=== PATIENT | female | born 1950 | race Caucasian/White ===

== ENCOUNTER → 2016-12-13 | Outpatient (REF) | payer MEDICARE ==
[2016-12-13 15:54] LABS: IMMUNOGLOBULIN G 1540 MG/DL (681-1648)
[2016-12-13 16:23] LABS: IMMUNOGLOBULIN M 15.1 MG/DL (40-230)
[2016-12-15 00:07] LABS: FREE KAPPA LIGHT CHAINS SERUM 99.59 mg/L (3.30-19.40); FREE LAMBDA LIGHT CHAINS SERUM 38.68 mg/L (5.71-26.30); KAPPA/LAMBDA RATIO SERUM 2.57 (0.26-1.65)
[2016-12-17 11:49] LABS: ALBUMIN 3.43 GM/DL (3.29-5.55)
[2016-12-17 11:50] LABS: GAMMA GLOBULIN % 24.9 % (11.1-18.8)
== END ==
LOC: M LAB REF 12:37
PROVIDERS: ATTEND Internal Medicine Medical Oncology
DX: C90.00 Multiple myeloma not having achieved remission (principal)

== ENCOUNTER → 2017-01-10 | Outpatient (REF) | payer MEDICARE ==
[2017-01-10 13:06] LABS: IMMUNOGLOBULIN G 1660 MG/DL (681-1648); TOTAL PROTEIN 6.9 GM/DL (6.4-8.2)
[2017-01-10 13:07] LABS: IMMUNOGLOBULIN M 17.2 MG/DL (40-230)
[2017-01-11 11:31] LABS: ALBUMIN 3.37 GM/DL (3.29-5.55); ALBUMIN % 48.8 % (55.8-66.1); GAMMA GLOBULIN % 25.6 % (11.1-18.8)
[2017-01-12 00:08] LABS: FREE KAPPA LIGHT CHAINS SERUM 102.18 mg/L (3.30-19.40); FREE LAMBDA LIGHT CHAINS SERUM 35.76 mg/L (5.71-26.30); KAPPA/LAMBDA RATIO SERUM 2.86 (0.26-1.65)
== END ==
LOC: M LAB REF 11:27
PROVIDERS: ATTEND Internal Medicine Medical Oncology
DX: C90.00 Multiple myeloma not having achieved remission (principal)

== ENCOUNTER → 2017-02-07 | Outpatient (REF) | payer MEDICARE ==
[2017-02-07 14:37] LABS: IMMUNOGLOBULIN G 1710 MG/DL (681-1648); TOTAL PROTEIN 7.5 GM/DL (6.4-8.2)
[2017-02-07 15:44] LABS: IMMUNOGLOBULIN M 16.5 MG/DL (40-230)
[2017-02-10 00:06] LABS: FREE KAPPA LIGHT CHAINS SERUM 109.96 mg/L (3.30-19.40); FREE LAMBDA LIGHT CHAINS SERUM 40.2 mg/L (5.71-26.30); KAPPA/LAMBDA RATIO SERUM 2.74 (0.26-1.65)
[2017-02-11 12:44] LABS: ALBUMIN 3.64 GM/DL (3.29-5.55); ALBUMIN % 48.5 % (55.8-66.1); GAMMA GLOBULIN % 24.5 % (11.1-18.8)
== END ==
LOC: M LAB REF 13:11
PROVIDERS: ATTEND Internal Medicine Medical Oncology
DX: C90.00 Multiple myeloma not having achieved remission (principal)

== ENCOUNTER → 2017-03-07 | Outpatient (REF) | payer MEDICARE ==
[2017-03-07 14:17] LABS: TOTAL PROTEIN 7.2 GM/DL (6.4-8.2)
[2017-03-09 00:09] LABS: FREE KAPPA LIGHT CHAINS SERUM 173.45 mg/L (3.30-19.40); FREE LAMBDA LIGHT CHAINS SERUM 58.47 mg/L (5.71-26.30); KAPPA/LAMBDA RATIO SERUM 2.97 (0.26-1.65)
[2017-03-11 13:02] LABS: ALBUMIN % 47.2 % (55.8-66.1); GAMMA GLOBULIN % 24.4 % (11.1-18.8)
== END ==
LOC: M LAB REF 12:59
PROVIDERS: ATTEND Internal Medicine Medical Oncology
DX: C90.00 Multiple myeloma not having achieved remission (principal)

== ENCOUNTER → 2017-04-11 | Outpatient (REF) | payer MEDICARE ==
[2017-04-11 15:29] LABS: IMMUNOGLOBULIN G 1680 MG/DL (681-1648); TOTAL PROTEIN 7.8 GM/DL (6.4-8.2)
[2017-04-11 16:22] LABS: IMMUNOGLOBULIN M 18.3 MG/DL (40-230)
[2017-04-13 00:06] LABS: FREE KAPPA LIGHT CHAINS SERUM 103.08 mg/L (3.30-19.40); FREE LAMBDA LIGHT CHAINS SERUM 38.02 mg/L (5.71-26.30); KAPPA/LAMBDA RATIO SERUM 2.71 (0.26-1.65)
[2017-04-16 09:10] LABS: ALBUMIN 3.93 GM/DL (3.29-5.55); ALBUMIN % 50.4 % (55.8-66.1); GAMMA GLOBULIN % 24.6 % (11.1-18.8)
== END ==
LOC: M LAB REF 13:18
PROVIDERS: ATTEND Internal Medicine Medical Oncology
DX: C90.00 Multiple myeloma not having achieved remission (principal)

== ENCOUNTER → 2017-05-09 | Outpatient (REF) | payer MEDICARE ==
[2017-05-09 15:29] LABS: IMMUNOGLOBULIN G 1540 MG/DL (681-1648); IMMUNOGLOBULIN M 27.5 MG/DL (40-230); TOTAL PROTEIN 7.8 GM/DL (6.4-8.2)
[2017-05-10 14:17] LABS: FREE KAPPA LIGHT CHAINS SERUM 111.8 mg/L (3.3-19.4); FREE LAMBDA LIGHT CHAINS SERUM 40.1 mg/L (5.7-26.3); KAPPA/LAMBDA RATIO SERUM 2.79 (0.26-1.65)
[2017-05-13 11:26] LABS: ALBUMIN 3.92 GM/DL (3.29-5.55); ALBUMIN % 50.2 % (55.8-66.1); GAMMA GLOBULIN % 25.1 % (11.1-18.8)
== END ==
LOC: M LAB REF 12:58
PROVIDERS: ATTEND Internal Medicine Medical Oncology
DX: C90.00 Multiple myeloma not having achieved remission (principal)

== ENCOUNTER → 2017-06-07 | Outpatient (REF) | payer MEDICARE ==
[2017-06-07 14:33] LABS: IMMUNOGLOBULIN G 1490 MG/DL (681-1648)
[2017-06-07 15:30] LABS: IMMUNOGLOBULIN M 18.4 MG/DL (40-230)
[2017-06-09 00:07] LABS: BETA 2 MICROGLOBULIN 2.3 mg/L (0.6-2.4); FREE KAPPA LIGHT CHAINS SERUM 105.4 mg/L (3.3-19.4); FREE LAMBDA LIGHT CHAINS SERUM 47.2 mg/L (5.7-26.3); KAPPA/LAMBDA RATIO SERUM 2.23 (0.26-1.65)
[2017-06-10 12:55] LABS: ALBUMIN 3.34 GM/DL (3.29-5.55); ALBUMIN % 47.7 % (55.8-66.1); GAMMA GLOBULIN % 23.9 % (11.1-18.8)
== END ==
LOC: M LAB REF 13:35
PROVIDERS: ATTEND Internal Medicine Medical Oncology
DX: C90.00 Multiple myeloma not having achieved remission (principal)

== ENCOUNTER → 2017-07-04 | Outpatient (REF) | payer MEDICARE ==
[2017-07-04 16:40] LABS: IMMUNOGLOBULIN G 1490 MG/DL (681-1648)
[2017-07-07 00:06] LABS: BETA 2 MICROGLOBULIN 2.1 mg/L (0.6-2.4); FREE KAPPA LIGHT CHAINS SERUM 89.1 mg/L (3.3-19.4); FREE LAMBDA LIGHT CHAINS SERUM 46.6 mg/L (5.7-26.3); KAPPA/LAMBDA RATIO SERUM 1.91 (0.26-1.65)
[2017-07-08 09:50] LABS: ALBUMIN 3.45 GM/DL (3.29-5.55); ALBUMIN % 49.3 % (55.8-66.1); GAMMA GLOBULIN % 23.9 % (11.1-18.8)
== END ==
LOC: M LAB REF 15:14
PROVIDERS: ATTEND Internal Medicine Medical Oncology
DX: C90.00 Multiple myeloma not having achieved remission (principal)

== ENCOUNTER → 2017-07-16 | Outpatient (CLI) | payer MEDICARE ==
--- NOTE | 2017-07-16 13:18 | REP ---
Cervical spine series: Eight views. History: Neck pain. Findings: Lateral views done in flexion/extension and neutral position show degenerative disc disease at C5-6 with disc space narrowing and osteophyte formation. There is minimal osteophyte formation anteriorly at C6-7, C4-5 and C3-4 as well. These disc spaces are maintained. No subluxation or instability is seen. Open mouth odontoid views show no abnormality although they are less than optimally positioned. AP view shows minimal facet hypertrophy. Oblique images demonstrate intact neural foramina bilaterally at each cervical level. Impression: Mild degenerative disc disease most pronounced at C5-6. Signed by Zaheer Saez MD 07/16/2017 05:17 P
== END ==
LOC: M RAD 11:53
PROVIDERS: ATTEND Family Medicine
DX: M50.322 Other cervical disc degeneration at C5-C6 level (principal)

== ENCOUNTER → 2017-08-01 | Outpatient (REF) | payer MEDICARE ==
[2017-08-01 14:31] LABS: TOTAL PROTEIN 6.8 GM/DL (6.4-8.2)
[2017-08-03 00:08] LABS: FREE LAMBDA LIGHT CHAINS SERUM 40.2 mg/L (5.7-26.3); KAPPA/LAMBDA RATIO SERUM 1.97 (0.26-1.65)
[2017-08-05 11:57] LABS: ALBUMIN 3.03 GM/DL (3.29-5.55); ALBUMIN % 44.6 % (55.8-66.1); GAMMA GLOBULIN % 19.2 % (11.1-18.8)
== END ==
LOC: M LAB REF 08:15
PROVIDERS: ATTEND Internal Medicine Medical Oncology
DX: C90.00 Multiple myeloma not having achieved remission (principal)

== ENCOUNTER → 2017-10-17 | Outpatient (REF) | payer MEDICARE ==
[2017-10-17 14:35] LABS: IMMUNOGLOBULIN G 1440 MG/DL (681-1648); IMMUNOGLOBULIN M 22.5 MG/DL (40-230); TOTAL PROTEIN 7.3 GM/DL (6.4-8.2)
[2017-10-19 00:08] LABS: BETA 2 MICROGLOBULIN 2.1 mg/L (0.6-2.4); FREE KAPPA LIGHT CHAINS SERUM 85.1 mg/L (3.3-19.4); FREE LAMBDA LIGHT CHAINS SERUM 36.3 mg/L (5.7-26.3); KAPPA/LAMBDA RATIO SERUM 2.34 (0.26-1.65)
[2017-10-21 13:58] LABS: GAMMA GLOBULIN % 21.6 % (11.1-18.8)
== END ==
LOC: M LAB REF 13:41
PROVIDERS: ATTEND Internal Medicine Medical Oncology
DX: C90.00 Multiple myeloma not having achieved remission (principal)

== ENCOUNTER → 2017-11-14 | Outpatient (REF) | payer MEDICARE ==
[2017-11-14 14:32] LABS: IMMUNOGLOBULIN G 1430 MG/DL (681-1648); IMMUNOGLOBULIN M 24.1 MG/DL (40-230); TOTAL PROTEIN 7.2 GM/DL (6.4-8.2)
[2017-11-16 00:10] LABS: BETA 2 MICROGLOBULIN 2.1 mg/L (0.6-2.4)
[2017-11-16 00:10] LABS: FREE KAPPA LIGHT CHAINS SERUM 84.9 mg/L (3.3-19.4); FREE LAMBDA LIGHT CHAINS SERUM 41.6 mg/L (5.7-26.3); KAPPA/LAMBDA RATIO SERUM 2.04 (0.26-1.65)
== END ==
LOC: M LAB REF 12:47
DX: C90.00 Multiple myeloma not having achieved remission (principal)
CPT/HCPCS: 84165

== ENCOUNTER → 2017-11-14 | Outpatient (REF) | payer MEDICARE ==
[2017-11-19 00:06] LABS: N.Meningitidis Type W-135 IgG 0.2 ug/mL (.)
== END ==
LOC: M LAB REF 12:51
DX: C90.00 Multiple myeloma not having achieved remission (principal)

== ENCOUNTER → 2017-12-18 | Outpatient (REF) | payer MEDICARE ==
[2017-12-18 14:57] LABS: IMMUNOGLOBULIN G 1560 MG/DL (681-1648); IMMUNOGLOBULIN M 21.7 MG/DL (40-230); TOTAL PROTEIN 7.2 GM/DL (6.4-8.2)
[2017-12-19 11:55] LABS: ALBUMIN 3.69 GM/DL (3.29-5.55); ALBUMIN % 51.3 % (55.8-66.1); ALPHA-1-GLOBULINS 0.29 GM/DL (0.17-0.41); ALPHA-2-GLOBULINS 0.76 GM/DL (0.42-0.99); ALPHA-2-GLOBULINS % 10.5 % (7.1-11.8); BETA-1-GLOBULINS 0.41 GM/DL (0.28-0.60); BETA-1-GLOBULINS % 5.7 % (4.7-7.2); BETA-2-GLOBULINS 0.42 GM/DL (0.19-0.55); BETA-2-GLOBULINS % 5.9 % (3.2-6.5); GAMMA GLOBULIN % 221.6 % (11.1-18.8); GAMMA GLOBULINS 1.63 GM/DL (0.65-1.58)
[2017-12-20 00:07] LABS: FREE KAPPA LIGHT CHAINS SERUM 49.3 mg/L (3.3-19.4); FREE LAMBDA LIGHT CHAINS SERUM 19.2 mg/L (5.7-26.3); KAPPA/LAMBDA RATIO SERUM 2.57 (0.26-1.65)
[2017-12-20 00:07] LABS: BETA 2 MICROGLOBULIN 2.4 mg/L (0.6-2.4)
== END ==
LOC: M LAB REF 13:10
DX: C90.00 Multiple myeloma not having achieved remission (principal)
CPT/HCPCS: 84165

== ENCOUNTER → 2018-01-16 | Outpatient (REF) | payer MEDICARE ==
[2018-01-16 14:15] LABS: URINE TOTAL PROTEIN 16.8 MG/DL (0-12)
[2018-01-16 14:37] LABS: IMMUNOGLOBULIN G 1520 MG/DL (681-1648); TOTAL PROTEIN 7.7 GM/DL (6.4-8.2)
[2018-01-16 14:50] LABS: IMMUNOGLOBULIN M 23.2 MG/DL (40-230)
[2018-01-17 12:56] LABS: ALBUMIN 4.07 GM/DL (3.29-5.55); ALBUMIN % 52.8 % (55.8-66.1); ALPHA-1-GLOBULIN % 3.9 % (2.9-4.9); ALPHA-2-GLOBULINS % 10.4 % (7.1-11.8); BETA-1-GLOBULINS 0.42 GM/DL (0.28-0.60); BETA-1-GLOBULINS % 5.5 % (4.7-7.2); BETA-2-GLOBULINS 0.42 GM/DL (0.19-0.55); BETA-2-GLOBULINS % 5.5 % (3.2-6.5); GAMMA GLOBULIN % 21.9 % (11.1-18.8); GAMMA GLOBULINS 1.69 GM/DL (0.65-1.58)
[2018-01-18 00:07] LABS: FREE KAPPA LIGHT CHAINS SERUM 49.5 mg/L (3.3-19.4); FREE LAMBDA LIGHT CHAINS SERUM 18.6 mg/L (5.7-26.3); KAPPA/LAMBDA RATIO SERUM 2.66 (0.26-1.65)
== END ==
LOC: M LAB REF 13:25
DX: C90.00 Multiple myeloma not having achieved remission (principal)
CPT/HCPCS: 84165

== ENCOUNTER → 2018-02-17 | Outpatient (REF) | payer MEDICARE ==
[2018-02-17 14:09] LABS: URINE TOTAL PROTEIN 32.7 MG/DL (0-12)
[2018-02-17 14:25] LABS: IMMUNOGLOBULIN G 1510 MG/DL (681-1648); IMMUNOGLOBULIN M 22.3 MG/DL (40-230); TOTAL PROTEIN 7.3 GM/DL (6.4-8.2)
[2018-02-18 11:51] LABS: ALBUMIN 3.69 GM/DL (3.29-5.55); ALBUMIN % 50.6 % (55.8-66.1); ALPHA-1-GLOBULIN % 4.3 % (2.9-4.9); ALPHA-1-GLOBULINS 0.31 GM/DL (0.17-0.41); BETA-1-GLOBULINS 0.43 GM/DL (0.28-0.60); BETA-1-GLOBULINS % 5.9 % (4.7-7.2); BETA-2-GLOBULINS 0.44 GM/DL (0.19-0.55); GAMMA GLOBULIN % 22.2 % (11.1-18.8); GAMMA GLOBULINS 1.62 GM/DL (0.65-1.58)
[2018-02-19 00:06] LABS: BETA 2 MICROGLOBULIN 2.3 mg/L (0.6-2.4)
[2018-02-19 00:06] LABS: FREE KAPPA LIGHT CHAINS SERUM 86.3 mg/L (3.3-19.4); FREE LAMBDA LIGHT CHAINS SERUM 34.3 mg/L (5.7-26.3); KAPPA/LAMBDA RATIO SERUM 2.52 (0.26-1.65)
== END ==
LOC: M LAB REF 13:11
DX: C90.00 Multiple myeloma not having achieved remission (principal)
CPT/HCPCS: 84165

== ENCOUNTER → 2018-04-29 | Outpatient (REF) | payer MEDICARE ==
[2018-04-29 14:20] LABS: IMMUNOGLOBULIN G 1440 MG/DL (681-1648); TOTAL PROTEIN 6.8 GM/DL (6.4-8.2)
[2018-04-29 14:22] LABS: IMMUNOGLOBULIN M 14.3 MG/DL (40-230)
[2018-05-01 00:07] LABS: FREE LAMBDA LIGHT CHAINS SERUM 35.8 mg/L (5.7-26.3); KAPPA/LAMBDA RATIO SERUM 2.65 (0.26-1.65)
[2018-05-01 10:52] LABS: ALBUMIN 3.34 GM/DL (3.29-5.55); ALBUMIN % 49.1 % (55.8-66.1); ALPHA-1-GLOBULIN % 4.5 % (2.9-4.9); ALPHA-1-GLOBULINS 0.31 GM/DL (0.17-0.41); ALPHA-2-GLOBULINS 0.76 GM/DL (0.42-0.99); ALPHA-2-GLOBULINS % 11.2 % (7.1-11.8); BETA-1-GLOBULINS % 5.9 % (4.7-7.2); BETA-2-GLOBULINS 0.43 GM/DL (0.19-0.55); BETA-2-GLOBULINS % 6.3 % (3.2-6.5); GAMMA GLOBULINS 1.56 GM/DL (0.65-1.58)
== END ==
LOC: M LAB REF 13:21
DX: C90.01 Multiple myeloma in remission (principal)
CPT/HCPCS: 84165

== ENCOUNTER → 2018-05-29 | Outpatient (REF) | payer MEDICARE ==
[2018-05-29 15:01] LABS: IMMUNOGLOBULIN G 1450 MG/DL (681-1648); TOTAL PROTEIN 7.2 GM/DL (6.4-8.2)
[2018-05-29 15:02] LABS: IMMUNOGLOBULIN M 16.5 MG/DL (40-230)
[2018-05-31 00:14] LABS: FREE KAPPA LIGHT CHAINS SERUM 89.6 mg/L (3.3-19.4); FREE LAMBDA LIGHT CHAINS SERUM 37.2 mg/L (5.7-26.3); KAPPA/LAMBDA RATIO SERUM 2.41 (0.26-1.65)
[2018-06-02 14:53] LABS: ALBUMIN 3.43 GM/DL (3.29-5.55); ALBUMIN % 47.6 % (55.8-66.1); ALPHA-1-GLOBULIN % 4.5 % (2.9-4.9); ALPHA-1-GLOBULINS 0.32 GM/DL (0.17-0.41); ALPHA-2-GLOBULINS 0.85 GM/DL (0.42-0.99); ALPHA-2-GLOBULINS % 11.8 % (7.1-11.8); BETA-1-GLOBULINS 0.46 GM/DL (0.28-0.60); BETA-1-GLOBULINS % 6.4 % (4.7-7.2); BETA-2-GLOBULINS 0.45 GM/DL (0.19-0.55); BETA-2-GLOBULINS % 6.3 % (3.2-6.5); GAMMA GLOBULIN % 23.4 % (11.1-18.8); GAMMA GLOBULINS 1.68 GM/DL (0.65-1.58)
== END ==
LOC: M LAB REF 13:48
DX: C90.01 Multiple myeloma in remission (principal)
CPT/HCPCS: 84165

== ENCOUNTER → 2018-06-27 | Outpatient (REF) | payer MEDICARE ==
[2018-06-27 14:28] LABS: IMMUNOGLOBULIN G 1540 MG/DL (681-1648); TOTAL PROTEIN 7.4 GM/DL (6.4-8.2)
[2018-06-27 14:33] LABS: IMMUNOGLOBULIN M 15.8 MG/DL (40-230)
[2018-06-28 15:10] LABS: FREE KAPPA LIGHT CHAINS SERUM 54.5 mg/L (3.3-19.4); FREE LAMBDA LIGHT CHAINS SERUM 19.4 mg/L (5.7-26.3); KAPPA/LAMBDA RATIO SERUM 2.81 (0.26-1.65)
[2018-07-01 12:12] LABS: ALBUMIN 3.83 GM/DL (3.29-5.55); ALBUMIN % 51.8 % (55.8-66.1); ALPHA-1-GLOBULIN % 3.6 % (2.9-4.9); ALPHA-1-GLOBULINS 0.27 GM/DL (0.17-0.41); ALPHA-2-GLOBULINS 0.75 GM/DL (0.42-0.99); ALPHA-2-GLOBULINS % 10.2 % (7.1-11.8); BETA-1-GLOBULINS 0.42 GM/DL (0.28-0.60); BETA-1-GLOBULINS % 5.7 % (4.7-7.2); BETA-2-GLOBULINS 0.44 GM/DL (0.19-0.55); GAMMA GLOBULIN % 22.7 % (11.1-18.8); GAMMA GLOBULINS 1.68 GM/DL (0.65-1.58)
== END ==
LOC: M LAB REF 13:17
DX: C90.01 Multiple myeloma in remission (principal); M87.89 Other osteonecrosis, multiple sites; Z79.899 Other long term (current) drug therapy
CPT/HCPCS: 84165

== ENCOUNTER → 2018-07-24 | Outpatient (REF) | payer MEDICARE ==
[2018-07-29 00:08] LABS: N.Meningitidis Type W-135 IgG 0.1 ug/mL (.)
== END ==
LOC: M LAB REF 13:43
DX: C90.00 Multiple myeloma not having achieved remission (principal)

== ENCOUNTER → 2018-07-24 | Outpatient (REF) | payer MEDICARE ==
[2018-07-24 15:40] LABS: IMMUNOGLOBULIN G 1570 MG/DL (681-1648); TOTAL PROTEIN 7.7 GM/DL (6.4-8.2)
[2018-07-24 15:44] LABS: IMMUNOGLOBULIN M 13.7 MG/DL (40-230)
[2018-07-26 14:10] LABS: FREE KAPPA LIGHT CHAINS SERUM 48.6 mg/L (3.3-19.4); FREE LAMBDA LIGHT CHAINS SERUM 16.5 mg/L (5.7-26.3); KAPPA/LAMBDA RATIO SERUM 2.95 (0.26-1.65)
[2018-07-26 14:10] LABS: BETA 2 MICROGLOBULIN 2.4 mg/L (0.6-2.4)
[2018-07-30 16:03] LABS: ALBUMIN 4.08 GM/DL (3.29-5.55); ALPHA-1-GLOBULIN % 3.4 % (2.9-4.9); ALPHA-1-GLOBULINS 0.26 GM/DL (0.17-0.41); ALPHA-2-GLOBULINS 0.76 GM/DL (0.42-0.99); ALPHA-2-GLOBULINS % 9.9 % (7.1-11.8); BETA-1-GLOBULINS 0.42 GM/DL (0.28-0.60); BETA-1-GLOBULINS % 5.4 % (4.7-7.2); BETA-2-GLOBULINS 0.42 GM/DL (0.19-0.55); BETA-2-GLOBULINS % 5.4 % (3.2-6.5)
[2018-07-30 16:04] LABS: GAMMA GLOBULIN % 22.9 % (11.1-18.8); GAMMA GLOBULINS 1.76 GM/DL (0.65-1.58)
== END ==
LOC: M LAB REF 13:59
DX: C90.01 Multiple myeloma in remission (principal); M87.89 Other osteonecrosis, multiple sites; Z51.81 Encounter for therapeutic drug level monitoring; Z79.899 Other long term (current) drug therapy; D70.1 Agranulocytosis secondary to cancer chemotherapy; T45.1X5A Adverse effect of antineoplastic and immunosuppressive drugs, initial encounter; D75.89 Other specified diseases of blood and blood-forming organs
CPT/HCPCS: 84165

== ENCOUNTER → 2019-03-09 | Outpatient (CLI) | payer MEDICARE ==
[~2019-03-09] MED LIST: ACYC400T OR; ACYC400T PO; AMOX250C3 PO; ASPI81TA26 PO; ATEN25TA PO; CALC600T60 PO; LORA0.5T11 PO; LOSA25TA14 OR; METO1TAB32 OR; NITR0.3S4; SENN-85 PO; SIMV40TA2 OR; VITA20008 PO
[2019-03-09 12:57] LABS: HEMATOCRIT 36.4 % (36.0-47.0); MEAN CORPUSCULAR HEMOGLOBIN 36.6 pg (27.0-33.0); PLATELET COUNT, AUTOMATED 221 10^3/uL (150-450); RED BLOOD COUNT 3.28 10^6/uL (4.00-5.40)
[2019-03-09 13:11] LABS: INR 0.92; PROTHROMBIN TIME 12.5 SECONDS (12.1-14.4)
[2019-03-09 13:36] LABS: BASO % 0.7 % (0.0-1.0); EOS % 0.7 % (0.0-3.0); LYMPH % 35.6 % (24.0-44.0); MONO # 0.4 10^3/uL (0.0-0.8); MONO % 13.5 % (0.0-5.0); NEUTROPHILS # 1.4 10^3/uL (1.8-7.7); NEUTROPHILS % 49.5 % (36.0-66.0)
== END ==
LOC: M LAB 12:05
PROVIDERS: ATTEND Dentist
DX: C90.01 Multiple myeloma in remission (principal)

== ENCOUNTER → 2019-10-06 | Outpatient (CLI) | payer MEDICARE ==
[~2019-10-06] MED LIST changes: +D32000CA PO
--- NOTE | 2019-10-06 14:04 | REP ---
Two views left humerus: 10/06/2019. Indication: Left arm pain. Comparison: 05/28/2016. Findings: There is no acute fracture, subluxation or dislocation. No lytic or blastic lesions are present. New no significant soft tissue abnormalities are detected. Impression: No acute osseous pathology of the left humerus. Electronically Signed by Adithya Mandujano DO 10/06/2019 01:56 P
== END ==
LOC: M RAD 13:32
PROVIDERS: ATTEND Internal Medicine Medical Oncology
DX: M79.622 Pain in left upper arm (principal)

== ENCOUNTER → 2020-04-22 | Outpatient (CLI) | payer MEDICARE ==
[~2020-04-22] MED LIST changes: -LORA0.5T11 PO; +LORA0.5T5 PO; -SIMV40TA2 OR; +SIMV40TA20 OR; +VITA200038 PO
[2020-04-22 09:52] LABS: BASO % 0.8 % (0.0-1.0); EOS % 1.2 % (0.0-3.0); HEMATOCRIT 39.6 % (36.0-47.0); HEMOGLOBIN 13.7 g/dl (12.0-15.5); LYMPH # 1.1 10^3/uL (1.5-5.0); LYMPH % 44.9 % (24.0-44.0); MEAN CORPUSCULAR HEMOGLOBIN 36.4 pg (27.0-33.0); MEAN CORPUSCULAR HGB CONC 34.6 g/dl (32.0-36.5); MEAN CORPUSCULAR VOLUME 105.3 fl (80.0-96.0); MONO # 0.3 10^3/uL (0.0-0.8); MONO % 11.5 % (0.0-5.0); NEUTROPHILS % 41.2 % (36.0-66.0); PLATELET COUNT, AUTOMATED 239 10^3/uL (150-450); RED BLOOD COUNT 3.76 10^6/uL (4.00-5.40); WHITE BLOOD COUNT 2.4 10^3/uL (4.0-10.0)
[2020-04-22 10:52] LABS: ALBUMIN 3.7 GM/DL (3.2-5.2); ALT/SGPT 21 U/L (12-78); BILIRUBIN,TOTAL 0.8 MG/DL (0.2-1.0); BLOOD UREA NITROGEN 19 MG/DL (7-18); CALCIUM LEVEL 9.2 MG/DL (8.8-10.2); CARBON DIOXIDE LEVEL 27 MEQ/L (21-32); CHLORIDE LEVEL 104 MEQ/L (98-107); CREATININE FOR GFR 0.91 MG/DL (0.55-1.30); GLOMERULAR FILTRATION RATE > 60.0 (>39); GLUCOSE, FASTING 89 MG/DL (70-100); IMMUNOGLOBULIN G 1250 MG/DL (681-1648); IMMUNOGLOBULIN M 21.9 MG/DL (40-230); SODIUM LEVEL 138 MEQ/L (136-145); TOTAL PROTEIN 7.4 GM/DL (6.4-8.2)
[2020-04-23 16:08] LABS: FREE KAPPA LIGHT CHAINS SERUM 35.2 mg/L (3.3-19.4); FREE LAMBDA LIGHT CHAINS SERUM 13.2 mg/L (5.7-26.3); KAPPA/LAMBDA RATIO SERUM 2.67 (0.26-1.65)
[2020-04-25 13:54] LABS: ALBUMIN 4.34 GM/DL (3.29-5.55); ALBUMIN % 58.7 % (55.8-66.1); ALPHA-1-GLOBULIN % 3.1 % (2.9-4.9); ALPHA-1-GLOBULINS 0.23 GM/DL (0.17-0.41); ALPHA-2-GLOBULINS 0.69 GM/DL (0.42-0.99); ALPHA-2-GLOBULINS % 9.3 % (7.1-11.8); BETA-1-GLOBULINS 0.38 GM/DL (0.28-0.60); BETA-1-GLOBULINS % 5.2 % (4.7-7.2); BETA-2-GLOBULINS 0.36 GM/DL (0.19-0.55); BETA-2-GLOBULINS % 4.8 % (3.2-6.5); GAMMA GLOBULIN % 18.9 % (11.1-18.8)
== END ==
LOC: M LAB 09:01
PROVIDERS: ATTEND Internal Medicine Medical Oncology
DX: C90.00 Multiple myeloma not having achieved remission (principal)

== ENCOUNTER → 2020-08-02 | Outpatient (CLI) | payer MEDICARE ==
--- NOTE | 2020-08-17 09:06 | REP ---
ADULT SKELETAL SURVEY: 15-VIEWS HISTORY: Multiple myeloma. COMPARISON: Skeletal survey study from 09/04/2016. FINDINGS: The bony calvarium is intact. No lytic lesion is seen. Cervical spine shows degenerative disc disease at C4-5 and 5-6 and to a lesser extent 6-7. Findings are similar to the prior study. No vertebral collapse or bony destructive lesion is seen in the vertebral column. Thoracic and lumbar spine views are unremarkable. No sacral or pelvic lytic lesion is seen. No rib lesion is identified. No definite lytic lesion is seen in either humerus or either femur. IMPRESSION: There are degenerative spondylosis changes in the spine. No lytic lesion is identified on todays skeletal survey. [facility]
== END ==
LOC: M RAD 10:13
PROVIDERS: ATTEND Internal Medicine Medical Oncology
DX: C90.00 Multiple myeloma not having achieved remission (principal); M50.321 Other cervical disc degeneration at C4-C5 level; M50.322 Other cervical disc degeneration at C5-C6 level; M50.323 Other cervical disc degeneration at C6-C7 level

== ENCOUNTER → 2020-09-10 | Outpatient (CLI) | payer MEDICARE | LOC: M LABSMTC 10:12 | PROVIDERS: ATTEND Anesthesiology | DX: Z01.812 Encounter for preprocedural laboratory examination (principal); Z20.828 Contact with and (suspected) exposure to other viral communicable diseases | CPT/HCPCS: C9803; U0003 ==

== ENCOUNTER 2020-09-15 07:10 | Day surgery (SDC) | payer MEDICARE ==
[~2020-09-15] VITALS: Ht 152.4 cm; Wt 56.7 kg
[~2020-09-15 07:10] MED LIST changes: +BSS IRR 500ML/OMIDRIA 4ML IRR BAG (OR ONLY) (J1097 PER ML) As Ordered ONE; +CEFUROXIME 1MG/0.1ML INTRACAMERAL INJ As Ordered ONE; +DUOVISC (0.50ML VISCOAT/0.55ML PROVISC) OPHTH KIT As Ordered ONE; +OFLOXACIN 0.3 % (OCUFLOX) OPTH SOL 5ML OD ONE; +PHENYLEPHRINE 2.5% OPHTH SOL 2ML OD ONE; +PROPARACAINE 0.5% OPHTH SOL 15ML OD ONE; +TROPICAMIDE 1% OPHTH SOLN 2ML OD ONE
[2020-09-15] MEDS ORDERED: DUOVISC (0.50ML VISCOAT/0.55ML PROVISC) OPHTH KIT As Ordered ONE (08:21)
[2020-09-15] MEDS ORDERED: POVIDONE-IODINE 5% OPHTH PREP SOL 30ML As Ordered ONE (08:28)
[2020-09-15] MEDS ORDERED: CEFUROXIME 1MG/0.1ML INTRACAMERAL INJ As Ordered ONE (09:12)
[2020-09-15] MEDS ORDERED: MIDAZOLAM INJ 2MG/2ML VIAL (J2250 PER 1MG) As Ordered ONE (09:18)
[2020-09-15] MEDS ORDERED: fentaNYL 100 MCG/2 ML INJECTION (J3010) As Ordered ONE (09:18)
[2020-09-15 09:50] VITALS: BP 135/96
== END 2020-09-15 10:03 | disposition home or self-care (01) ==
LOC: M SDC 07:10
PROVIDERS: ATTEND Ophthalmology
DX: H25.11 Age-related nuclear cataract, right eye (principal); H40.1110 Primary open-angle glaucoma, right eye, stage unspecified; I25.2 Old myocardial infarction; Z79.82 Long term (current) use of aspirin; Z79.899 Other long term (current) drug therapy; Z92.21 Personal history of antineoplastic chemotherapy; Z86.718 Personal history of other venous thrombosis and embolism; Z85.79 Personal history of other malignant neoplasms of lymphoid, hematopoietic and related tissues; Z92.3 Personal history of irradiation
CPT/HCPCS: 66183; 66711; 66984; C1783; J1097; J2250; J3010; V2632

== ENCOUNTER → 2020-10-22 | Outpatient (CLI) | payer MEDICARE ==
[~2020-10-22] MED LIST changes: +AMOX500C PO; -BSS IRR 500ML/OMIDRIA 4ML IRR BAG (OR ONLY) (J1097 PER ML) As Ordered ONE; -CEFUROXIME 1MG/0.1ML INTRACAMERAL INJ As Ordered ONE; -DUOVISC (0.50ML VISCOAT/0.55ML PROVISC) OPHTH KIT As Ordered ONE; -LOSA25TA14 OR; +LOSA25TA14 PO; -OFLOXACIN 0.3 % (OCUFLOX) OPTH SOL 5ML OD ONE; -PHENYLEPHRINE 2.5% OPHTH SOL 2ML OD ONE; -PROPARACAINE 0.5% OPHTH SOL 15ML OD ONE; -SIMV40TA20 OR; +SIMV40TA20 PO; -TROPICAMIDE 1% OPHTH SOLN 2ML OD ONE
== END ==
LOC: M LABSMTC 10:06
PROVIDERS: ATTEND Anesthesiology
DX: Z01.812 Encounter for preprocedural laboratory examination (principal); Z20.828 Contact with and (suspected) exposure to other viral communicable diseases

== ENCOUNTER 2020-10-27 08:14 | Day surgery (SDC) | payer MEDICARE ==
[~2020-10-27] VITALS: Ht 152.4 cm; Wt 54.0 kg
[~2020-10-27 08:14] MED LIST changes: +CEFUROXIME 1MG/0.1ML INTRACAMERAL INJ As Ordered ONE; +DUOVISC (0.50ML VISCOAT/0.55ML PROVISC) OPHTH KIT As Ordered ONE; +OFLOXACIN 0.3 % (OCUFLOX) OPTH SOL 5ML OS ONE; +PHENYLEPHRINE 2.5% OPHTH SOL 2ML OS ONE; +POVIDONE-IODINE 5% OPHTH PREP SOL 30ML As Ordered ONE; +PROPARACAINE 0.5% OPHTH SOL 15ML OS ONE; +TROPICAMIDE 1% OPHTH SOLN 2ML OS ONE
[2020-10-27] MEDS ORDERED: BSS IRR 500ML/OMIDRIA 4ML IRR BAG (OR ONLY) As Ordered ONE (09:19)
[2020-10-27] MEDS ORDERED: propofoL 200 MG/20 ML VIAL As Ordered ONE ×2 (10:19→10:27)
[2020-10-27] MEDS ORDERED: fentaNYL 250 MCG/5 ML INJECTION (J3010) As Ordered ONE (10:19)
[2020-10-27] MEDS ORDERED: MIDAZOLAM INJ 2MG/2ML VIAL (J2250 PER 1MG) As Ordered ONE (10:19)
[2020-10-27 11:00] VITALS: BP 136/68
--- NOTE | 2020-11-01 15:26 | RO ---
OPERATIVE NOTE DATE OF OPERATION: 10/27/2020 PREOPERATIVE DIAGNOSES: 1. Visually significant nuclear sclerotic cataract, left eye. 2. Primary open angle glaucoma, left eye. POSTOPERATIVE DIAGNOSES: 1. Visually significant nuclear sclerotic cataract, left eye. 2. Primary open angle glaucoma, left eye. PROCEDURE: 1. Cataract extraction with use of phacoemulsification, and placement of intraocular lens, AU00T0, 22.0 D, left eye. 2. Placement of ECP and GlaukosiStent, left eye. ANESTHESIA: Local (Omidria) with MAC COMPLICATIONS: None POSTOPERATIVE CONDITION: Stable INDICATIONS FOR SURGERY: 1. Blurred vision affecting patient's activities of daily living DESCRIPTION OF PROCEDURE: The patient was seen in the preoperative area and properly identified. The correct operative eye was identified and marked. The patient received topical anesthetic, antibiotics, and topical dilating drops. The patient was then transferred to the operating room. The correct side was re-identified and a timeout was performed. The eye was prepped and draped in a sterile fashion. The eyelids were isolated with Tegaderm tape and the lids were held open with an adjustable speculum. A 1.0mm paracentesis incision was made. Omidria was injected into the anterior chamber. Viscoelastic was then injected into the anterior chamber through the paracentesis. Using a 2.4mm sharp-tipped keratome, the anterior chamber was entered via a temporal clear cornea incision. A continuous curvilinear capsulorhexis was created with Utrata forceps. Hydrodissection was performed with BSS on a blunt cannula until the nucleus was able to rotate freely. The crystalline lens was phacoemulsified and aspirated. Irrigation/aspiration was used to remove the cortical material Cohesive viscoelastic was placed into the capsular bag to deepen it. The implant was placed into the capsular bag and allowed to unfold. Placement was confirmed by visualizing the anterior capsulorhexis. Additional viscoelastic was placed in the anterior chamber, and on top of the cornea. The head was untaped, and rotated away. The microscope was rotated to 45 degrees. A gonioprism was placed on the cornea and the angle was visualized. The iStent inject was placed into the trabecular meshwork, approximately 4 clock hours apart without difficulty. A small gush of heme was noted indicating appropriate placement. No hyphema was present. The head was placed face up and the microscope to 0 degrees. Irrigation/aspiration was used to remove the viscoelastic. The clear corneal incision was hydrated with BSS on a blunt cannula. The lens was well positioned. Cefuroxime was injected into the anterior chamber. The incisions were then tested for leaks and found to be negative. The eye was then palpated for appropriate pressure and adjusted accordingly with BSS. The eyelid speculum was then carefully removed. A shield was placed over the eye. The patient tolerated the procedure well and was discharge to the recovery unit in a stable condition.
== END 2020-10-27 11:15 | disposition home or self-care (01) ==
LOC: M SDC 08:14
PROVIDERS: ATTEND Ophthalmology
DX: H25.12 Age-related nuclear cataract, left eye (principal); H40.1120 Primary open-angle glaucoma, left eye, stage unspecified; Z86.718 Personal history of other venous thrombosis and embolism; I25.2 Old myocardial infarction; Z79.82 Long term (current) use of aspirin; Z79.899 Other long term (current) drug therapy
CPT/HCPCS: 66183; 66711; 66984; C1783; J1097; J2250; J3010; V2632

== ENCOUNTER → 2021-11-28 | Outpatient (CLI) | payer MEDICARE ==
[~2021-11-28] MED LIST changes: +ACYC1TAB OR; +ACYC1TAB PO; -ACYC400T OR; -ACYC400T PO; -CEFUROXIME 1MG/0.1ML INTRACAMERAL INJ As Ordered ONE; -DUOVISC (0.50ML VISCOAT/0.55ML PROVISC) OPHTH KIT As Ordered ONE; +LOSA25TA13 PO; -LOSA25TA14 PO; -OFLOXACIN 0.3 % (OCUFLOX) OPTH SOL 5ML OS ONE; -PHENYLEPHRINE 2.5% OPHTH SOL 2ML OS ONE; -POVIDONE-IODINE 5% OPHTH PREP SOL 30ML As Ordered ONE; -PROPARACAINE 0.5% OPHTH SOL 15ML OS ONE; -TROPICAMIDE 1% OPHTH SOLN 2ML OS ONE
== END ==
LOC: M WHC 11:56
PROVIDERS: ATTEND Family Medicine
DX: Z12.31 Encounter for screening mammogram for malignant neoplasm of breast (principal); M81.0 Age-related osteoporosis without current pathological fracture; M85.851 Other specified disorders of bone density and structure, right thigh

== ENCOUNTER → 2022-02-14 | Outpatient (REF) | payer MEDICARE ==
[~2022-02-14] MED LIST changes: +LEVO500T4 PO
[2022-02-14 08:45] LABS: ALBUMIN 3.7 GM/DL (3.2-5.2); ALT/SGPT 21 U/L (12-78); BILIRUBIN,TOTAL 0.7 MG/DL (0.2-1.0); BLOOD UREA NITROGEN 12 MG/DL (7-18); CALCIUM LEVEL 9.1 MG/DL (8.8-10.2); CARBON DIOXIDE LEVEL 28 MEQ/L (21-32); CHLORIDE LEVEL 100 MEQ/L (98-107); CHOLESTEROL LEVEL 211 MG/DL (<200); CHOLESTEROL RISK RATIO 1.661 (<5); GLOMERULAR FILTRATION RATE > 60.0 (>39); GLUCOSE, FASTING 89 MG/DL (70-100); HDL CHOLESTEROL 127 MG/DL (>40); LDL CHOLESTEROL 73 MG/DL (<100); NON-HDL-C 84 MG/DL; POTASSIUM SERUM 3.6 MEQ/L (3.5-5.1); SODIUM LEVEL 134 MEQ/L (136-145); TOTAL PROTEIN 7.1 GM/DL (6.4-8.2); TRIGLYCERIDES LEVEL 56 MG/DL (<150)
[2022-02-14 09:53] LABS: TOTAL 25(OH) VITAMIN D 36.8 NG/ML (30.0-100.0)
== END ==
LOC: M LAB REF 07:54
PROVIDERS: ATTEND Family Medicine
DX: M81.0 Age-related osteoporosis without current pathological fracture (principal); I25.10 Atherosclerotic heart disease of native coronary artery without angina pectoris

== ENCOUNTER → 2022-03-28 | Outpatient (CLI) | payer MEDICARE ==
[~2022-03-28] MED LIST changes: +LIDOCAINE 1% MDV 20ML VIAL As Ordered ONE
[2022-03-28 12:32] LABS: HEMATOCRIT 35.7 % (36.0-47.0); HEMOGLOBIN 12.3 g/dl (12.0-15.5); MEAN CORPUSCULAR HEMOGLOBIN 35.9 pg (27.0-33.0); MEAN CORPUSCULAR HGB CONC 34.5 g/dl (32.0-36.5); MEAN CORPUSCULAR VOLUME 104.1 fl (80.0-96.0); PLATELET COUNT, AUTOMATED 201 10^3/uL (150-450); RED BLOOD COUNT 3.43 10^6/uL (4.00-5.40); WHITE BLOOD COUNT 3.2 10^3/uL (4.0-10.0)
[2022-03-28 13:32] VITALS: BP 130/59
[2022-03-28 13:38] LABS: ATYPICAL LYMPH 4 % (0-5); LYMPHOCYTES 36 % (16-44); MONOCYTES 11 % (0-5); NEUTROPHILS 49 % (28-66)
[2022-03-28 13:39] LABS: PLATELET ESTIMATE NORMAL (NORMAL)
== END ==
LOC: M IRPRO 11:34
PROVIDERS: ATTEND Internal Medicine Medical Oncology
DX: D70.9 Neutropenia, unspecified (principal); C90.01 Multiple myeloma in remission